=== PATIENT | male | born 1975 | race Caucasian/White ===

== ENCOUNTER 2024-02-26 12:18 | Inpatient (IN) | payer OTHER ==
[~2024-02-26] VITALS: Ht 172.7 cm; Wt 78.5 kg
[2024-02-26 14:00] VITALS: BP 119/76; PULSE 66; RESP 16; TEMP 97.6; O2SAT 99
[2024-02-26] MEDS ORDERED: ACETAMINOPHEN 325 MG TAB PO PRN (15:30)
[2024-02-26] MEDS ORDERED: ONDANSETRON HCL 4 MG/2 ML VIAL IV PRN (15:30)
[2024-02-26] MEDS ORDERED: MORPHINE SULFATE INJ 2 MG/ml SYRG IV PRN (15:30)
[2024-02-26] MEDS ORDERED: HYDROmorphone HCL 2 MG/ML VL/or syr IV PRN (15:30)
[2024-02-26] MEDS ORDERED: LORazepam 0.5 MG TAB PO PRN (15:30)
[2024-02-26] MEDS ORDERED: NITROGLYCERIN 0.4 MG SL TAB SL PRN (15:30)
[2024-02-26] MEDS ORDERED: HYDROcodone-ACET 5/325MG TAB PO PRN (15:30)
[2024-02-26 16:29] LABS: Eosinophils # (auto) 0.3 10 ^3/uL (0-0.8); Eosinophils % (auto) 2.5 % (0.0-7.0); Hemoglobin 13.8 g/dL (13.5-17.5); Monocytes # (auto) 0.6 10 ^3/uL (0-1.3); Nucleated Red Blood Cells % 0.1 %; Red Blood Cells 4.02 10^6/uL (4.5-5.90)
[2024-02-26 16:30] VITALS: BP 122/78; PULSE 56; RESP 20; TEMP 98.1; O2SAT 100
[2024-02-26 16:31] LABS: Basophils # (auto) 0 10 ^3/uL (0-0.2); Basophils % (auto) 0.4 % (0.0-2.0); Hematocrit 39.3 % (41.0-53.0); Lymphocytes # (auto) 2.9 10 ^3/uL (0.4-5.4); Lymphocytes % (auto) 28.3 % (10.0-50.0); Mean Corpuscular Hemoglobin 34.3 pg (28.0-32.0); Mean Corpuscular Hgb Conc. 35.1 g/dL (32.0-36.0); Mean Corpuscular Volume 97.9 fL (80.0-100.0); Monocytes % (auto) 5.9 % (0.0-12.0); Neutrophils # (auto) 6.5 10 ^3/uL (1.6-8.6); Neutrophils % (auto) 62.9 % (37.0-80.0); Red Cell Distribution Width 13.3 % (11.8-14.3); White Blood Cell 10.3 10^3/uL (4.4-10.8)
[2024-02-26 16:47] LABS: Chloride 111 mmol/L (98-107); Potassium 4.1 mmol/L (3.5-5.1); Sodium 141 mmol/L (136-145)
[2024-02-26 16:48] LABS: Anion Gap 4 (5-15); Calcium 9.6 mg/dL (8.7-10.4); Carbon Dioxide 26 mmol/L (20-30)
[2024-02-26 16:53] LABS: BUN/Creatinine Ratio 7.3 (10.0-20.0); Blood Urea Nitrogen 8 mg/dL (9-23); Glucose 157 mg/dL (74-106)
[2024-02-26] MEDS: LORazepam 0.5 MG TAB PO ONE (17:02)
[2024-02-26 18:37] LABS: Magnesium 1.9 mg/dL (1.6-2.6)
[2024-02-26 20:00] VITALS: PULSE 67; O2SAT 96
[2024-02-26 21:18] LABS: Urine Bacteria None Seen /hpf (None Seen)
[2024-02-26 21:26] LABS: Urine Blood Negative /uL (Negative); Urine Clarity Clear (Clear); Urine Color Light-Yellow (Yellow); Urine Protein, UAD Negative (Negative); Urine Specific Gravity 1.009 (1.001-1.035); Urine Urobilinogen Normal (Negative); Urine WBC <1 /hpf (0 - 3); Urine pH 6.5 (5.0-9.0)
[2024-02-26 21:41] LABS: Amphetamine Screen, Urine Neg (NEGATIVE); Benzodiazephine Screen, Urine Neg (NEGATIVE)
[2024-02-26 21:42] LABS: Barbiturate Scree,Urine Neg (NEGATIVE); Cannabinoid Screen, Urine Neg (NEGATIVE); Cocaine Screen, Urine Neg (NEGATIVE); Opiate Scree,Urine Neg (NEGATIVE); Phencyclidine Screen, Urine Neg (NEGATIVE)
[2024-02-26 22:00] VITALS: BP 107/77; PULSE 64; RESP 18; TEMP 97.8; O2SAT 99
[2024-02-26] MEDS: SODIUM CHLOR 0.9% PF (SALINE LOCK) 10ML VIAL/SYR IV SCH (22:00)
[2024-02-27] VITALS (12 sets, daily range): BP systolic 100–133; BP diastolic 58–78; PULSE 59–94; RESP 12–19; TEMP 97.6–98.6; O2SAT 93–98
[2024-02-27 07:35] LABS: Basophils # (auto) 0 10 ^3/uL (0-0.2); Eosinophils # (auto) 0.3 10 ^3/uL (0-0.8); Lymphocytes # (auto) 2.4 10 ^3/uL (0.4-5.4); Neutrophils # (auto) 4.7 10 ^3/uL (1.6-8.6)
[2024-02-27 07:36] LABS: Anion Gap 7 (5-15); Carbon Dioxide 25 mmol/L (20-30); Chloride 111 mmol/L (98-107); Potassium 3.9 mmol/L (3.5-5.1); Sodium 143 mmol/L (136-145)
[2024-02-27 07:37] LABS: Calcium 9.5 mg/dL (8.7-10.4)
[2024-02-27 07:38] LABS: Basophils % (auto) 0.5 % (0.0-2.0); Eosinophils % (auto) 3.9 % (0.0-7.0); Hematocrit 39.3 % (41.0-53.0); Lymphocytes % (auto) 29.7 % (10.0-50.0); Mean Corpuscular Hemoglobin 34.5 pg (28.0-32.0); Mean Corpuscular Hgb Conc. 35.7 g/dL (32.0-36.0); Mean Corpuscular Volume 96.6 fL (80.0-100.0); Monocytes # (auto) 0.6 10 ^3/uL (0-1.3); Monocytes % (auto) 7.6 % (0.0-12.0); Neutrophils % (auto) 58.3 % (37.0-80.0); Nucleated Red Blood Cells % 0.2 %; Red Blood Cells 4.07 10^6/uL (4.5-5.90); Red Cell Distribution Width 13.1 % (11.8-14.3); White Blood Cell 8.1 10^3/uL (4.4-10.8)
[2024-02-27 07:40] LABS: INR 1.06 (0.9-1.15); Partial Thromboplastin Time 30.7 SEC (24.5-34.5); Prothrombin Time 11.2 sec (9.3-11.8)
[2024-02-27 07:42] LABS: BUN/Creatinine Ratio 9.5 (10.0-20.0); Blood Urea Nitrogen 10 mg/dL (9-23); Glucose 90 mg/dL (74-106)
[2024-02-27] MEDS ORDERED: fentaNYL CITRATE 100 MCG/2 ML VL ONE (10:21)
[2024-02-27] MEDS ORDERED: ANGIOMAX 250 MG VIAL IV ONE (10:21)
[2024-02-27] MEDS ORDERED: VERAPAMIL 2.5MG/ML INJ 2ML VIAL IV ONE (10:21)
[2024-02-27] MEDS ORDERED: SODIUM CHL 0.9% 0 ML ONE (10:22)
[2024-02-27] MEDS ORDERED: MIDAZOLAM HCL 2MG/2ML 2ml VIAL (1mg/ml) ONE (10:22)
[2024-02-27] MEDS ORDERED: IODIXANOL 320MG/ML 100ML BTL IV ONE (10:28)
[2024-02-27] MEDS ORDERED: LIDOCAINE 2%HCL (LOCAL ANESTH.) INJ 20ML MDV ONE (11:04)
[2024-02-27] MEDS ORDERED: HEPARIN SODIUM (PORCINE) 5000 UNITS/ML 1ML VIAL ONE (11:25)
[2024-02-27] MEDS: ATORVASTATIN 20 MG TAB PO SCH (21:14)
[2024-02-28 01:00] VITALS: BP 96/59; PULSE 72; RESP 17; TEMP 98; O2SAT 97
[2024-02-28 05:00] VITALS: BP 99/61; PULSE 65; RESP 18; TEMP 98.2; O2SAT 97
[2024-02-28 06:06] LABS: Anion Gap 6 (5-15); Calcium 9.4 mg/dL (8.7-10.4); Carbon Dioxide 23 mmol/L (20-30); Chloride 111 mmol/L (98-107); Potassium 4.3 mmol/L (3.5-5.1); Sodium 140 mmol/L (136-145)
[2024-02-28 06:12] LABS: BUN/Creatinine Ratio 13.7 (10.0-20.0); Blood Urea Nitrogen 14 mg/dL (9-23); Glucose 97 mg/dL (74-106)
[2024-02-28 06:26] LABS: Basophils # (auto) 0 10 ^3/uL (0-0.2); Basophils % (auto) 0.5 % (0.0-2.0); Eosinophils # (auto) 0.3 10 ^3/uL (0-0.8); Monocytes # (auto) 0.8 10 ^3/uL (0-1.3); Neutrophils # (auto) 4.6 10 ^3/uL (1.6-8.6); White Blood Cell 9.2 10^3/uL (4.4-10.8)
[2024-02-28 06:28] LABS: Eosinophils % (auto) 3.7 % (0.0-7.0); Hematocrit 39.6 % (41.0-53.0); Hemoglobin 14.3 g/dL (13.5-17.5); Lymphocytes # (auto) 3.4 10 ^3/uL (0.4-5.4); Lymphocytes % (auto) 37.1 % (10.0-50.0); Mean Corpuscular Hemoglobin 34.8 pg (28.0-32.0); Mean Corpuscular Hgb Conc. 36.1 g/dL (32.0-36.0); Mean Corpuscular Volume 96.5 fL (80.0-100.0); Monocytes % (auto) 8.4 % (0.0-12.0); Neutrophils % (auto) 50.3 % (37.0-80.0); Nucleated Red Blood Cells % 0.1 %; Red Blood Cells 4.11 10^6/uL (4.5-5.90); Red Cell Distribution Width 12.8 % (11.8-14.3)
[2024-02-28 08:00] VITALS: PULSE 52; PULSE 68; RESP 17; O2SAT 97
[2024-02-28 08:35] VITALS: BP 103/67; PULSE 66; RESP 19; TEMP 98.2; O2SAT 97
[2024-02-28] MEDS: ASPirin 81 mg TAB PO SCH (10:15)
[2024-02-28] MEDS ORDERED: ASPI-325 PO (10:51)
[2024-02-28] MEDS ORDERED: ACET-1882 PO (10:51)
[2024-02-28] MEDS ORDERED: ERGO1CAP23 PO (10:51)
[2024-02-28] MEDS ORDERED: ATOR20TA50 PO (10:51)
[2024-02-28] MEDS: ERGOCALCIFEROL 50,000 UNIT(1.25MG) CAP PO SCH (12:27)
[2024-02-28 12:30] VITALS: BP 101/69; PULSE 68; RESP 18; TEMP 97.7; O2SAT 99
[2024-02-28 13:30] VITALS: BP 101/69; PULSE 68; RESP 17; TEMP 97.7; O2SAT 99
== END 2024-02-28 14:15 | disposition home or self-care (01) | DRG 287 ==
LOC: WEST WING 13:46 → TELE-WESTW 14:16
PROVIDERS: ADMIT Internal Medicine; ATTEND Internal Medicine
PROC: 4A023N7 Measurement of Cardiac Sampling and Pressure, Left Heart, Percutaneous Approach (ICD-10-PCS; principal; 2024-02-27)
PROC: B211YZZ Fluoroscopy of Multiple Coronary Arteries using Other Contrast (ICD-10-PCS; 2024-02-27)
PROC: 4A033BC Measurement of Arterial Pressure, Coronary, Percutaneous Approach (ICD-10-PCS; 2024-02-27)
DX: I25.119 Atherosclerotic heart disease of native coronary artery with unspecified angina pectoris (principal); F41.9 Anxiety disorder, unspecified; F32.A Depression, unspecified; F17.210 Nicotine dependence, cigarettes, uncomplicated; E78.5 Hyperlipidemia, unspecified; Z71.6 Tobacco abuse counseling; Z79.899 Other long term (current) drug therapy
CPT/HCPCS: 36415; 71045; 80048; 80061; 80307; 81001; 82306; 82607; 83036; 83735; 84443; 84484; 85025; 85379; 85610; 85730; 86850; 86900; 86901; 93005; 93306; 93458; 93571; 99152; G0378; J2250; Q9967